=== PATIENT | female | born 1985 | race Caucasian/White ===

== ENCOUNTER 2017-05-31 09:44 | Emergency (ER) | payer OTHER ==
[~2017-05-31] VITALS: Ht 154.9 cm; Wt 71.7 kg
[~2017-05-31 09:44] MED LIST: CALCTAB98 PO; FERR325T PO; IBUP600 PO; OXYC1SOL5 PO; PREN0.01 PO
[2017-05-31] MEDS ORDERED: LACTATED RINGER'S 1000 ML INJ 1,000 ML IV SCH (10:03)
[2017-05-31 10:04] VITALS: BP 115/58; PULSE 94
[2017-05-31 10:05] VITALS: BP 109/69; PULSE 103
[2017-05-31 10:07] VITALS: BP 99/65; PULSE 118
--- NOTE | 2017-05-31 10:07 | PD ---
HPI Chief Complaint nausea/vomiting Date Seen: May 31, 2017 Travel History International Travel<30 Days: No Contact w/Intl Traveler<30Days: No History of Present Illness HPI Mrs. Jiang is a [address] Castano at 30 1/7 weeks who presents with nausea/vomiting and abdominal cramping. Mrs. Jiang reports that she has had nausea/vomiting for 4 days following oral intake of liquids or food; patient states that she last attempted to eat solid food on Tuesday. Patient has since tried to just drink fluids to maintain hydration but has continued to vomit. Patient does not report any abnormal consistency of vomit or suggestion of blood in vomit. Patient also states that this morning she began to have lower abdominal cramping which she describes as menstrual cramps. Patient reports that she had some loose stools earlier this week but no bowel movement abnormalities for the past 2 days. Patient does not report any associated fever/chills. Patient does not report previous episodes of frequent vomiting during with exception of morning sickness early in . Patient reports normal movement. Patient does not report any vaginal bleeding or vaginal discharge. Patient is had some headaches; no associated dizziness. No shortness of breath or leg swelling. Patient reports some leg cramping. Patient reports having unremarkable history is less for . Patient had a prior section at term for failure to progress several years previously. 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- received Progesterone early in Past Surgical History Narrative Surgical CS x1 D&C Family History Narrative Family History None reported Social History Alcohol Use: No Tobacco Use: No Substance Abuse: No Allergies-Medications (Allergen,Severity, Reaction): Coded Allergies: No Known Allergies (Unverified , 02/13/15) Home Meds Active Scripts Ibuprofen (Motrin 600 Mg Tab) 600 Mg Tab, 600 MG PO Q6H Y for CRAMPING, #30 TAB 0 Refills Prov:Rosario Dyson MD 02/16/15 Oxycodone W/ Acetaminophen (Oxycodone/Acetaminophen 5-325 mg/5Ml) 1 Tab Tab, 2 TAB PO Q4H Y for PAIN SCALE 6 TO 10, #30 TAB 0 Refills Prov:Rosario Dyson MD 02/16/15 Reported Medications Ferrous Sulfate (Iron) 325 Mg Tab, PO DAILY, TAB 02/13/15 Calcium Carbonate-Vitamin D (Calcium) Tab, 1 TAB PO DAILY, TAB 02/13/15 Multivit/Min/Fol Ac/Iron/Pren ( Vit ( Plus)) Tab, 1 TAB PO DAILY, TAB 02/13/15 Review of Systems General / Constitutional: No: Fever, Chills Eyes: No: Blurred Vision HENT: No: Headaches Cardiovascular: No: Chest Pain or Discomfort Respiratory: No: Short of Breath Gastrointestinal: Nausea, Vomiting, Abdominal Pain (lower abdominal cramping), No: Diarrhea Genitourinary: No: Urgency, Frequency Skin: No Rash, No Itching Neurologic: No: Weakness, Dizziness Physical Exam SBP 115 HR 93 T 97.7F Narrative GENERAL: Well-nourished, well-developed patient. SKIN: Warm and dry. EYES: No scleral icterus. No injection or drainage. ENT: No nasal drainage noted. Mucous membranes pink. Airway patent. CARDIOVASCULAR: Regular rate and rhythm without murmurs. Normal peripheral perfusion RESPIRATORY: CTAB; normal rate EXTREMITIES: No cyanosis or edema. NEUROLOGICAL: Awake and alert. Motor and sensory function grossly within normal limits. ABDOMEN/GI: Abdomen soft, mild discomfort inferiorly, bowel sounds present, no rebound, no guarding Gravid GENITOURINARY: Uterine Contractions: None FHT's: Category: 1 Baseline: 135 Reactive: Y Variability: Mod Decels: None Data Data Orders Orders Vital Signs (Adult) .ON ADMISSION (05/31/17 10:03) ^ Labor Status (05/31/17 10:03) Urinalysis - C+S If Indicated (05/31/17 10:03) ^ Non Stress Test (05/31/17 10:03) ^ Hydration (05/31/17 10:03) Cbc No Diff, Includes Plts (05/31/17 10:03) Comprehensive Metabolic Panel (05/31/17 10:03) Lactated Ringer's 1000 Ml Inj (Lr 1000 M (05/31/17 10:03) MDM Medical Record Reviewed: Yes Narrative Course / MDM Mrs. Jiang is a [address] Castano at 30 1/7 weeks who presents with nausea/vomiting and abdominal cramping. -Inability to maintain PO intake for 4 days -Lower abdominal cramping -VS: suggestion of orthostasis -Uterine irritability on CTG -Cat 1 rhythm Plan: -Continue to monitor VS -Continue to monitor EFM, CTG -Will start IV LR -Will check CBC, CMP, UA Interval: -Patient received IV Ringer's, no nausea at this time -CBC- Hgb 11, WBC 11.9, PLT 193 -CMP- Cr 0.35, electrolytes wnl, LFT's wnl Updated Plan: -Discussed with patient that her initial lab work is reassuring of lack of severe dehydratuion and that she would be safe for discharge home and follow-up with Dr. Castano -Oral intake encouraged; will give patient prescription for Phenergan to assist with nausea control -Patient to return to OB ED with worsening nausea/vomiting or other symptoms Diagnosis Diagnosis: Primary Impression: 30 weeks gestation of Additional Impression: Nausea/vomiting in Disposition: 01 DISCHARGE HOME Condition: Stable Scripts Promethazine (Phenergan) 25 Mg Tablet 25 MG PO Q6H Y for NAUSEA OR VOMITING, #20 TAB 0 Refills Prov: Lamonte Oviedo MD, R3 05/31/17 Lamonte Oviedo MD, R3 May 31, 2017 10:07
[2017-05-31 10:09] VITALS: RESP 18; TEMP 97.7
[2017-05-31 11:07] LABS: HEMATOCRIT 32.2 % (35.0-46.0); MEAN CELL VOLUME 90.2 FL (80.0-100.0); MEAN CORPUSCULAR HEMOGLOBIN 30.7 PG (27.0-34.0); MEAN CORPUSCULAR HGB CONC 34.1 % (32.0-36.0); MEAN PLATELET VOLUME 7.7 FL (7.0-11.0); PLATELET COUNT 193 TH/MM3 (150-450); RED BLOOD COUNT 3.57 MIL/MM3 (4.00-5.30); RED CELL DISTRIBUTION WIDTH 13.1 % (11.6-17.2); WHITE BLOOD COUNT 11.9 TH/MM3 (4.0-11.0)
[2017-05-31 11:12] LABS: ALKALINE PHOSPHATASE 82 U/L (45-117); TOTAL BILIRUBIN ADULT 0.3 MG/DL (0.2-1.0); TOTAL PROTEIN 6.5 GM/DL (6.4-8.2)
[2017-05-31 11:16] LABS: ALBUMIN 2.7 GM/DL (3.4-5.0); ALT (GPT) 14 U/L (10-53); AST (GOT) 20 U/L (15-37); BICARBONATE 21.9 MEQ/L (21.0-32.0); BLOOD UREA NITROGEN 8 MG/DL (7-18); CALCIUM 8.5 MG/DL (8.5-10.1); CHLORIDE 107 MEQ/L (98-107); CREATININE 0.35 MG/DL (0.50-1.00); GLOMERULAR FILTRATION RATE 217 ML/MIN (>89); GLUCOSE,RANDOM 80 MG/DL (74-106); SODIUM (NA) 139 MEQ/L (136-145)
[2017-05-31] MEDS ORDERED: PROM25TA10 PO (12:16)
[2017-05-31 12:28] LABS: BACTERIA, URINE FEW /hpf; BILIRUBIN, URINE NEG (NEG); BLOOD, URINE NEG (NEG); GLUCOSE,URINE NEG (NEG); HYALINE CAST, URINE 1 /lpf (RARE); KETONE, URINE 10 mg/dL (NEG); MUCUS URINE FEW /lpf (OCC); NITRITE,URINE NEG (NEG); SQUAMOUS EPITHELIAL CELL URINE 11 /hpf (0-5); URINE COLOR YELLOW (YELLW/STRAW); URINE LEUKOCYTE ESTERASE NEG (NEG)
== END 2017-05-31 13:26 | disposition home or self-care (01) ==
LOC: HOBED 09:44
DX: O21.2 Late vomiting of pregnancy (principal); Z3A.30 30 weeks gestation of pregnancy
CPT/HCPCS: 80053; 81001; 85027; 99284; J7120

== ENCOUNTER 2017-07-24 21:01 | Emergency (ER) | payer OTHER ==
[~2017-07-24 21:01] MED LIST changes: -CALCTAB98 PO; -FERR325T PO; -IBUP600 PO; -OXYC1SOL5 PO; +PROM25TA10 PO
--- NOTE | 2017-07-24 21:52 | PD ---
HPI Chief Complaint Contractions Date Seen: Jul 24, 2017 Time Seen: 21:47 Travel History International Travel<30 Days: No Contact w/Intl Traveler<30Days: No Known Affected Area: No History of Present Illness HPI 32-year-old 3 para 1 at 37-6/7 weeks gestation who reports mild contractions over the past 2-3 days. She states that she will occasionally have a more intense contraction. She denies any leakage of fluid or bleeding. She reports that she was 2 cm dilated in the office on Tuesday. Her cervix is 2 cm, long, high presenting part. Category 1 heart rate. History Past Medical History Medical History: Denies Significant Hx Obstetric History Obstetric History 1 SAB with D&C Prior section after second stage arrest Past Surgical History Narrative Surgical and D&C Family History Family History: Negative Social History Alcohol Use: No Tobacco Use: No Substance Abuse: No Allergies-Medications (Allergen,Severity, Reaction): Coded Allergies: No Known Allergies (Unverified , 02/13/15) Home Meds Active Scripts Promethazine (Phenergan) 25 Mg Tablet, 25 MG PO Q6H Y for NAUSEA OR VOMITING, # 20 TAB 0 Refills Prov:Lamonte Oviedo MD, R3 05/31/17 Reported Medications Multivit/Min/Fol Ac/Iron/Pren ( Vit ( Plus)) 27 Mg Iron-1 Mg Tab , 1 TAB PO DAILY, TAB 02/13/15 Review of Systems Except as stated in HPI: all other systems reviewed are Neg Physical Exam Narrative GENERAL: Well-nourished, well-developed patient. SKIN: Warm and dry. HEAD: Normocephalic and atraumatic. EYES: No scleral icterus. No injection or drainage. ENT: No nasal drainage noted. Mucous membranes pink. Airway patent. NECK: Supple, trachea midline. No JVD. CARDIOVASCULAR: Regular rate and rhythm without murmurs, gallops, or rubs. RESPIRATORY: Breath sounds equal bilaterally. No accessory muscle use. Gravid to [-] weeks size Fundal Height: [-] GENITOURINARY: External Genitalia: intact and normal in appearance BUS glands: [Negative-] Cervix: [-] Dilatation: [-2] Effacement: [lg] Station: [-high] Presentation: [-vtx] Membranes: [intact ] Uterine Contractions: [-q5-7] FHT's: Category: [-1] Baseline: [-] Reactive: [-] Variability: [-] Decels: [-] EXTREMITIES: No cyanosis or edema. BACK: Nontender without obvious deformity. No CVA tenderness. NEUROLOGICAL: Awake and alert. Motor and sensory grossly within normal limits. Five out of 5 muscle strength in all muscle groups. Normal speech. MDM Medical Record Reviewed: Yes Narrative Course / MDM Assessment: 37+ weeks gestation with mild irregular uterine contractions and no cervical change since Wednesdays exam Plan: Home with labor precautions. Diagnosis Diagnosis: Primary Impression: 37 weeks gestation of Additional Impression: False labor after 37 weeks of gestation without delivery Disposition: 01 DISCHARGE HOME Condition: Good Nas Goodman MD Jul 24, 2017 21:52
== END 2017-07-24 22:07 | disposition home or self-care (01) ==
LOC: HOBED 21:01
DX: O47.1 False labor at or after 37 completed weeks of gestation (principal); Z3A.37 37 weeks gestation of pregnancy
CPT/HCPCS: 59025

== ENCOUNTER 2017-07-29 08:45 | Inpatient (IN) | payer OTHER ==
[2017-07-29] VITALS (12 sets, daily range): BP systolic 93–103; BP diastolic 48–60; PULSE 66–92; RESP 16–20; TEMP 97.5–98.2; O2SAT 99–100
[~2017-07-29] VITALS: Ht 154.9 cm; Wt 76.0 kg
[2017-07-29] MEDS ORDERED: LACTATED RINGER'S 1000 ML INJ 1,000 ML IV ONE (09:34)
[2017-07-29 09:43] LABS: AUTOMATED NEUTROPHIL # 10.8 TH/MM3 (1.8-7.7); BASOPHIL # 0.1 TH/MM3 (0-0.2); BASOPHIL % 0.4 % (0.0-2.0); EOSINOPHIL # 0.1 TH/MM3 (0-0.4); EOSINOPHIL % 0.9 % (0.0-4.0); HEMATOCRIT 34.8 % (35.0-46.0); HEMOGLOBIN 12.2 GM/DL (11.6-15.3); LYMPH % 16.6 % (9.0-44.0); LYMPHOCYTE # 2.3 TH/MM3 (1.0-4.8); MEAN CELL VOLUME 87.2 FL (80.0-100.0); MEAN CORPUSCULAR HEMOGLOBIN 30.7 PG (27.0-34.0); MEAN CORPUSCULAR HGB CONC 35.2 % (32.0-36.0); MEAN PLATELET VOLUME 7.9 FL (7.0-11.0); MONO % 5.8 % (0.0-8.0); MONOCYTE # 0.8 TH/MM3 (0-0.9); NEUT % 76.3 % (16.0-70.0); PLATELET COUNT 257 TH/MM3 (150-450); RED BLOOD COUNT 3.99 MIL/MM3 (4.00-5.30); RED CELL DISTRIBUTION WIDTH 13.8 % (11.6-17.2); WHITE BLOOD COUNT 14.1 TH/MM3 (4.0-11.0)
--- NOTE | 2017-07-29 09:44 | HHI.HP ---
HPI Chief Complaint Regular contractions with cervical change prior section after prolonged second stage desires repeat section Date Seen: Jul 29, 2017 Time Seen: 09:36 Travel History International Travel<30 Days: No Contact w/Intl Traveler<30Days: No Known Affected Area: No History of Present Illness HPI 32 yo mwf at 38 5/7 weeks scheduled for section Tuesday. She has been akiko irregularly for one week and had one visit to [facility]. This am they have picked up in frequency and intensity. No leaking, bleeding. No CROWELL, nausea , vomiting or blurred vision. PNC with [facility] and uneventful. No GTN, PTL or GDM. GFM Weeks Gestation: 39 Para: 1 : 2 History Past Medical History Medical History: Denies Significant Hx Obstetric History Obstetric History Traumatic delivery: taken back for section after pushing several hours with good tracing in room. At delivery apgars 0, 0 5 at 1,5,10 minutes with no etiology identifed. Toddler is in excellent health. Keisha and Mars have significant PTSD Family History Family History: Negative Social History Alcohol Use: No Tobacco Use: No Substance Abuse: No Allergies-Medications (Allergen,Severity, Reaction): Coded Allergies: No Known Allergies (Unverified , 02/13/15) Home Meds Reported Medications Multivit/Min/Fol Ac/Iron/Pren ( Vit ( Plus)) 27 Mg Iron-1 Mg Tab , 1 TAB PO DAILY, TAB 02/13/15 Discontinued Scripts Promethazine (Phenergan) 25 Mg Tablet, 25 MG PO Q6H Y for NAUSEA OR VOMITING, # 20 TAB 0 Refills Prov:Lamonte Oviedo MD, R3 05/31/17 Review of Systems General / Constitutional: No: Fever, Weight Gain, Chills, Other Eyes: No: Diploplia, Blurred Vision, Visual changes, Pain, Photophobia HENT: No: Headaches, Vertigo, Lightheadedness Cardiovascular: No: Irregular Rhythm, Chest Pain or Discomfort, Palpitations, Tachycardia, Syncope, Varicosities, Edema, Cyanosis Respiratory: No: Cough, Short of Breath, Other Gastrointestinal: No: Nausea, Vomiting, Diarrhea Genitourinary: No: Decreased Urinary Output, Oliguria Musculoskeletal: No: Limited ROM, Weakness, Cramping, Edema, Pain Skin: No Rash, No Itching, No Dryness, No Lumps, No Change in Pigmentation, No Change in Nails, No Alopecia, No Lesions Neurologic: No: Weakness, Dizziness, Syncope, Focal Abnormalities, Coordination Problem, Headache, Slurred Speech, Seizures Psychiatric: No: Depression, Suicidal Ideations, Homicidal Ideation Endocrine: No: Heat Intolerance, Cold Intolerance, Polydipsia, Polyuria, Other Physical Exam Narrative GENERAL: Well-nourished, well-developed patient. SKIN: Warm and dry. HEAD: Normocephalic and atraumatic. EYES: No scleral icterus. No injection or drainage. ENT: No nasal drainage noted. Mucous membranes pink. Airway patent. NECK: Supple, trachea midline. No JVD. CARDIOVASCULAR: Regular rate and rhythm without murmurs, gallops, or rubs. RESPIRATORY: Breath sounds equal bilaterally. No accessory muscle use. BREASTS: Bilateral exam showed no masses , no retractions, no nipple discharge. ABDOMEN/GI: Abdomen soft, non-tender, bowel sounds present, no rebound, no guarding FH 39 cervix 50/2/-1 anterior soft EFW 7 strip category one EXTREMITIES: No cyanosis or edema. BACK: Nontender without obvious deformity. No CVA tenderness. NEUROLOGICAL: Awake and alert. Motor and sensory grossly within normal limits. Five out of 5 muscle strength in all muscle groups. Normal speech. Caprini VTE Risk Assessment Caprini VTE Risk Assessment: No/Low Risk (score <= 1) Caprini Risk Assessment Model Point Value = 1 Point Value = 2 Point Value = 3 Point Value = 5 Age 41-60 Minor surgery BMI > 25 kg/m2 Swollen legs Varicose veins or History of unexplained or recurrent spontaneous Oral contraceptives or hormone replacement Sepsis (< 1 month) Serious lung disease, including pneumonia (< 1 month) Abnormal pulmonary function Acute myocardial infarction Congestive heart failure (< 1 month) History of inflammatory bowel disease Medical patient at bed rest Age 61-74 Arthroscopic surgery Major open surgery (> 45 min) Laparoscopic surgery (> 45 min) Malignancy Confined to bed (> 72 hours) Immobilizing plaster cast Central venous access Age >= 75 History of VTE Family history of VTE Factor V Leiden Prothrombin [id number] Lupus anticoagulant Anticardiolipin antibodies Elevated serum homocysteine Heparin-induced thrombocytopenia Other congenital or acquired thrombophilia Stroke (< 1 month) Elective arthroplasty Hip, pelvis, or leg fracture Acute spinal cord injury (< 1 month) Prophylaxis Regimen Total Risk Factor Score Risk Level Prophylaxis Regimen 0-1 Low Early ambulation 2 Moderate Order ONE of the following: *Sequential Compression Device (SCD) *Heparin 5000 units SQ BID 3-4 Higher Order ONE of the following medications: *Heparin 5000 units SQ TID *Enoxaparin/Lovenox 40 mg SQ daily (WT < 150 kg, CrCl > 30 mL/min) *Enoxaparin/Lovenox 30 mg SQ daily (WT < 150 kg, CrCl > 10-29 mL/min) *Enoxaparin/Lovenox 30 mg SQ BID (WT < 150 kg, CrCl > 30 mL/min) AND/OR *Sequential Compression Device (SCD) 5 or more Highest Order ONE of the following medications: *Heparin 5000 units SQ TID (Preferred with Epidurals) *Enoxaparin/Lovenox 40 mg SQ daily (WT < 150 kg, CrCl > 30 mL/min) *Enoxaparin/Lovenox 30 mg SQ daily (WT < 150 kg, CrCl > 10-29 mL/min) *Enoxaparin/Lovenox 30 mg SQ BID (WT < 150 kg, CrCl > 30 mL/min) AND *Sequential Compression Device (SCD) Data Data Vital Signs Reviewed: Yes Orders Orders Ob (2e) Additional Admit Info (07/29/17 09:13) Admit To Inpatient (07/29/17 ) Code Status (07/29/17 09:34) Vital Signs (Adult) .ON ADMISSION (07/29/17 09:34) Activity Oob Ad Swetha (07/29/17 09:34) Heart (07/29/17 09:34) Urinary Catheter Management SAMEER.Q8H (07/29/17 09:34) ^ Preps (07/29/17 09:34) Scd / Juan / Foot Pump SAMEER.QSHIFT (07/29/17 09:34) ^ Ultrasound For Locatio (07/29/17 09:34) Diet Npo (07/29/17 Breakfast) Lactated Ringer's 1000 Ml Inj (Lr 1000 M (07/29/17 09:34) Lactated Ringer's 1000 Ml Inj (Lr 1000 M (07/29/17 10:04) Cefazolin 2 Gm Premix (Ancef 2 Gm Premix (07/29/17 10:45) Citric Acid-Sodium Citrate Liq (Bicitra (07/29/17 11:15) Type And Screen (07/29/17 09:34) Complete Blood Count With Diff (07/29/17 09:34) Urinalysis - C+S If Indicated (07/29/17 09:34) Drug Screen, Random Urine (07/29/17 09:34) Inpatient Certification (07/29/17 ) Specimen To Be Collected PRN (07/29/17 09:34) Specimen To Be Collected PRN (07/29/17 09:34) Group B Strep: Negative Assessment/Plan Problem List: (1) Third trimester ICD Codes: Z34.93 - Encounter for supervision of normal , unspecified , third trimester (2) Previous delivery, antepartum ICD Codes: O34.219 - Maternal care for unspecified type scar from previous delivery Assessment and Plan Will proceed with section that was scheduled for Tuesday. Risks, benefits, alternative, expectations have been reviewed in the office and here. Ally very fearful of TOLAC given the traumatic delivery of her daughter. Alycia Castano MD Jul 29, 2017 09:44
[2017-07-29 09:51] LABS: BACTERIA, URINE RARE /hpf; BILIRUBIN, URINE NEG (NEG); BLOOD, URINE NEG (NEG); GLUCOSE,URINE NEG (NEG); KETONE, URINE NEG (NEG); MUCUS URINE FEW /lpf (OCC); NITRITE,URINE NEG (NEG); SQUAMOUS EPITHELIAL CELL URINE 4 /hpf (0-5); URINE COLOR YELLOW (YELLW/STRAW); URINE LEUKOCYTE ESTERASE NEG (NEG)
[2017-07-29] MEDS ORDERED: MORPHINE SULFATE PF 5 MG/10 ML VIAL ONE (09:51)
[2017-07-29] MEDS: LACTATED RINGER'S 1000 ML INJ 1,000 ML IV SCH (10:16)
[2017-07-29] MEDS ORDERED: EPIDURAL-NO SYSTEMIC NARCOTICS PRN (10:25)
[2017-07-29] MEDS ORDERED: EPIDURAL-DIPHENHYDRAMINE HCL 50 MG/ML VIAL IV PUSH PRN (10:25)
[2017-07-29] MEDS ORDERED: EPIDURAL-NALOXONE HCL 0.4 MG/ML AMP IV PUSH PRN (10:25)
[2017-07-29] MEDS ORDERED: EPIDURAL-DIPHENHYDRAMINE HCL 50 MG CAP PO PRN (10:25)
[2017-07-29] MEDS ORDERED: EPIDURAL-DO NOT ADMINISTER ANTICOAGULANTS PRN (10:25)
[2017-07-29] MEDS ORDERED: ceFAZolin 2 GM PREMIX 50 ML IV SCH (10:45)
[2017-07-29] MEDS ORDERED: CITRIC ACID-SODIUM CITRATE LIQ 30 ML UDC PO SCH (11:15)
--- NOTE | 2017-07-29 11:27 | PD.OB.DELI ---
Procedure Note Section Procedure Pre Op Diagnosis: (1) Third trimester (2) Previous delivery affecting Post Op Diagnosis: (1) delivery delivered Performed by Alycia Castano Procedure: Repeat Low Transverse Sec Indication for delivery: Desired elective repeat Informed consent obtained: For anesthesia, For procedure Confirmed correct: Patient, Procedure, Site, Time-out taken Anesthesia: Spinal Medication prior to procedure: As documented in eMAR Monitoring during procedure: Blood pressure monitoring, bus monitor, doppler, Pulse oximetry Urinary catheter: Inserted using sterile technique, To dependent drainage Sterile preparation: Duraprep, In usual fashion Position: Supine with wedge to right side Operative Features Skin Incision: Pfannenstiel Uterine Incision: Low transverse w/knife / blunt ext Membranes Ruptured: Artificially Presentation: Occiput anterior Delivery date: Jul 29, 2017 Delivery time: 11:26 Delivery of infant: Assisted Infant: Female One Minute : 8 Five Minute : 9 Weight: 8 pounds 7 ounces Status of infant: Viable, Cord blood, Umbilical cord, Nursery present Placenta delivered: Intact Medications: Antibiotics, Oxytocin Estimated blood loss: 600 Procedure tolerated: Well Maternal Condition: Stable Condition: Stable Procedure in detail dictated Alycia Castano MD Jul 29, 2017 11:27
[2017-07-29] MEDS ORDERED: DEXAMETHASONE SOD PHOS 4 MG/ML VIAL IV ONE (12:00)
[2017-07-29] MEDS ORDERED: PHENYLEPH/NS 1000 MCG/10 ML SYR IV ONE (12:00)
[2017-07-29] MEDS ORDERED: OXYTOCIN 30 UNITS-500ML PREMIX 500 ML IV ONE (12:00)
[2017-07-29] MEDS ORDERED: OXYTOCIN 10 UNIT/ML AMP IV ONE (12:00)
[2017-07-29] MEDS ORDERED: oxyCODONE/ACETAMINOPHEN 5 MG/325 MG TAB PO PRN (12:00)
[2017-07-29] MEDS ORDERED: ACETAMINOPHEN 1000 MG/100 ML 100 ML IV ONE ×2 (12:00→12:10)
[2017-07-29] MEDS ORDERED: ePHEDrine/NS 25 MG/5 ML SYRINGE IV ONE (12:00)
[2017-07-29] MEDS ORDERED: ONDANSETRON HCL 4 MG/2 ML VIAL IV ONE (12:00)
[2017-07-29] MEDS ORDERED: SODIUM CHLORIDE 0.9% FLUSH 10 ML FLUSH IV FLUSH PRN (12:00)
[2017-07-29] MEDS ORDERED: IBUP-232 PO (15:39)
[2017-07-29] MEDS ORDERED: PERC5TAB12 PO (15:40)
--- NOTE | 2017-07-29 15:41 | HHI.DCPOC ---
Discharge Care Plan Diagnosis: (1) Third trimester (2) delivery delivered (3) Previous delivery affecting Your Health Problems Are: delivery Report Symptoms to Your Doctor -Temperature above 100.5 degrees -Redness, of incision or excessive or foul smelling drainage -Unusual pain or calf pain -Increased vaginal bleeding -Painful or difficulty urinating -Feelings of extreme sadness or anxiety after 2 weeks Goals to Promote Your Health * To prevent worsening of your condition and complications * To maintain your health at the optimal level Directions to Meet Your Goals Take your medications as prescribed Follow your dietary instruction Follow activity as directed Ensure plenty of rest for recovery Drink fluids for hydration Keep your appointments as scheduled Take your immunizations and boosters as scheduled If your symptoms worsen call your PCP, if no PCP go to Urgent Care Center or Emergency Room Smoking is Dangerous to Your Health. Avoid second hand smoke Call the 24-hour crisis hotline for domestic abuse at Bang Alejandro MD Jul 29, 2017 15:41
[2017-07-29] MEDS ORDERED: LACTATED RINGER'S 1000 ML INJ 1,000 ML IV SCH (16:27)
[2017-07-29] MEDS ORDERED: ONDANSETRON HCL 4 MG/2 ML VIAL IV PUSH PRN (16:45)
[2017-07-29] MEDS ORDERED: SODIUM CHLORIDE 0.9% FLUSH 10 ML FLUSH IV FLUSH SCH (21:00)
[2017-07-29] MEDS ORDERED: OXYTOCIN 30 UNITS-500ML PREMIX 500 ML IV PRN (21:30)
[2017-07-29] MEDS: IBUPROFEN 600 MG TAB PO PRN (22:07)
[2017-07-29] MEDS: oxyCODONE/ACETAMINOPHEN 5 MG/325 MG TAB PO PRN (22:07)
[2017-07-30] VITALS: BP 96/60; PULSE 110; RESP 18; TEMP 98.3
[2017-07-30 04:00] VITALS: BP 99/65; PULSE 93; RESP 18; TEMP 98.1
[2017-07-30] MEDS: IBUPROFEN 600 MG TAB PO PRN ×4 (04:02→22:34)
[2017-07-30] MEDS: oxyCODONE/ACETAMINOPHEN 5 MG/325 MG TAB PO PRN ×4 (04:03→18:36)
--- NOTE | 2017-07-30 07:48 | HHI.OB ---
Subjective Post Operative Day: 1 Remarks Doing well, pain controlled, vaginal bleeding less than menses, tolerating diet , no nausea or vomiting. Objective Result Diagram: 07/29/17 0920 Objective Remarks GENERAL: Well-nourished, well-developed patient. CARDIOVASCULAR: Regular rate RESPIRATORY: No accessory muscle use. EXTREMITIES: No cyanosis or edema, non-tender, without signs of DVT. Medications and IVs Current Medications Medications (Trade) Dose Ordered Sig/David Route Start Time Stop Time Status Last Admin Lactated Ringer's 1,000 ml @ 150 mls/hr Q6H40M IV 07/29/17 10:00 07/29/17 10:16 Cefazolin Sodium/ Dextrose 50 ml @ 100 mls/hr RUBBER TRIMMER IV 07/29/17 10:45 08/02/17 10:44 07/29/17 10:15 (Bicitra Liq) 30 ml RUBBER TRIMMER PO 07/29/17 11:15 08/02/17 11:14 07/29/17 10:15 Lactated Ringer's 1,000 ml @ 100 mls/hr Q10H IV 07/29/17 16:27 07/30/17 12:26 Oxytocin 500 ml @ 100 mls/hr UNSCH X1 PRN IV 07/29/17 21:30 07/30/17 21:29 (NS Flush) 2 ml BID IV FLUSH 07/29/17 21:00 (NS Flush) 2 ml UNSCH PRN IV FLUSH 07/29/17 12:00 (Motrin) 600 mg Q6H PRN PO 07/29/17 12:00 07/30/17 04:02 (Percocet 5-325 Mg) 1 tab Q4H PRN PO 07/29/17 12:00 07/30/17 04:03 (Percocet 5-325 Mg) 2 tab Q4H PRN PO 07/29/17 12:00 (M-M-R Ii Inj) 0.5 ml ONCE ONCE SQ 07/30/17 16:00 07/30/17 16:01 (Boostrix Inj) 0.5 ml ONCE ONCE IM 07/30/17 16:00 07/30/17 16:01 Miscellaneous Information NO SYSTEMIC NARCOTICS TO BE GIVEN FO... UNSCH PRN .XX 07/29/17 10:25 07/30/17 10:24 (Narcan Inj) 0.4 mg UNSCH PRN IV PUSH 07/29/17 10:25 07/30/17 10:24 (Benadryl Inj) 25 mg Q6H PRN IV PUSH 07/29/17 10:25 07/30/17 10:24 (Benadryl) 50 mg Q6H PRN PO 07/29/17 10:25 07/30/17 10:24 Miscellaneous Information ALL NURSING DEPARTMENTS UNSCH PRN .XX 07/29/17 10:25 07/30/17 10:24 (Zofran Inj) 4 mg Q6H PRN IV PUSH 07/29/17 16:45 07/29/17 16:45 Assessment/Plan Problem List: (1) Third trimester ICD Codes: Z34.93 - Encounter for supervision of normal , unspecified , third trimester (2) Previous delivery, antepartum ICD Codes: O34.219 - Maternal care for unspecified type scar from previous delivery Assessment and Plan 32-year-old 0-2 status post term repeat LTCS 1. POD #1: Doing well, afebrile, vital signs stable, output appropriate, and hemoglobin pending. Anticipate discharge home in the next 48 hours. Will Discuss postoperative expectations, follow-up and precaution tomorrow. Bang Alejandro MD Jul 30, 2017 07:48
[2017-07-30 08:00] VITALS: BP 95/57; PULSE 68; RESP 16; TEMP 98.3
[2017-07-30 08:31] LABS: AUTOMATED NEUTROPHIL # 10.2 TH/MM3 (1.8-7.7); BASOPHIL % 0.1 % (0.0-2.0); EOSINOPHIL # 0.1 TH/MM3 (0-0.4); EOSINOPHIL % 0.7 % (0.0-4.0); HEMATOCRIT 27.2 % (35.0-46.0); HEMOGLOBIN 9.3 GM/DL (11.6-15.3); LYMPH % 19.8 % (9.0-44.0); LYMPHOCYTE # 2.8 TH/MM3 (1.0-4.8); MEAN CELL VOLUME 87.7 FL (80.0-100.0); MEAN CORPUSCULAR HEMOGLOBIN 30.1 PG (27.0-34.0); MEAN CORPUSCULAR HGB CONC 34.3 % (32.0-36.0); MEAN PLATELET VOLUME 7.6 FL (7.0-11.0); MONO % 7.4 % (0.0-8.0); PLATELET COUNT 228 TH/MM3 (150-450); RED CELL DISTRIBUTION WIDTH 14.1 % (11.6-17.2); WHITE BLOOD COUNT 14.1 TH/MM3 (4.0-11.0)
[2017-07-30] MEDS: DOCUSATE SODIUM 50 MG/SENNA 8.6 MG TAB PO PRN (10:11)
[2017-07-30] MEDS ORDERED: DIPHTH/TETANUS/ACEL PERTUSSIS (BOOSTER) 0.5 ML VIAL/PFS IM ONE (16:00)
[2017-07-30] MEDS ORDERED: MEASLES, MUMPS, RUBELLA VACCINE 0.5 ML VIAL SQ ONE (16:00)
[2017-07-30 19:30] VITALS: BP 110/64; PULSE 80; RESP 18; TEMP 97.7
[2017-07-31] MEDS: LACTATED RINGER'S 1000 ML INJ 1,000 ML IV SCH ×2 (00:05→05:36)
[2017-07-31] MEDS: DOCUSATE SODIUM 50 MG/SENNA 8.6 MG TAB PO PRN (03:30)
[2017-07-31] MEDS: oxyCODONE/ACETAMINOPHEN 5 MG/325 MG TAB PO PRN ×3 (03:30→14:44)
[2017-07-31] MEDS: IBUPROFEN 600 MG TAB PO PRN ×2 (06:48→13:02)
[2017-07-31] MEDS ORDERED: medroxyPROGESTERone ACETATE SUSP 150 MG/ML SYRINGE ONE (09:15)
[2017-07-31 09:30] VITALS: BP 97/68; PULSE 86; RESP 16; TEMP 97.8
--- NOTE | 2017-07-31 10:33 | HHI.OB ---
Subjective Post Operative Day: 2 Remarks Doing well, pain controlled, vaginal bleeding less than menses, tolerating diet , no nausea or vomiting, some BL LE swelling, no pain and states is symmetrical Objective Vitals/I&O Vital Signs Date Time Temp Pulse Resp B/P (MAP) Pulse Ox O2 Delivery O2 Flow Rate FiO2 07/30/17 19:30 97.7 80 18 110/64 (79) Result Diagram: 07/30/17 0806 Objective Remarks GENERAL: Well-nourished, well-developed patient. CARDIOVASCULAR: Regular rate RESPIRATORY: No accessory muscle use. EXTREMITIES: No cyanosis or edema, non-tender, without signs of DVT. Medications and IVs Current Medications Medications (Trade) Dose Ordered Sig/David Route Start Time Stop Time Status Last Admin Lactated Ringer's 1,000 ml @ 150 mls/hr Q6H40M IV 07/29/17 10:00 07/29/17 10:16 Cefazolin Sodium/ Dextrose 50 ml @ 100 mls/hr FORGING ENGINEER IV 07/29/17 10:45 08/02/17 10:44 07/29/17 10:15 (Bicitra Liq) 30 ml FORGING ENGINEER PO 07/29/17 11:15 08/02/17 11:14 07/29/17 10:15 (NS Flush) 2 ml BID IV FLUSH 07/29/17 21:00 (NS Flush) 2 ml UNSCH PRN IV FLUSH 07/29/17 12:00 (Motrin) 600 mg Q6H PRN PO 07/29/17 12:00 07/31/17 06:48 (Percocet 5-325 Mg) 1 tab Q4H PRN PO 07/29/17 12:00 07/31/17 09:39 (Percocet 5-325 Mg) 2 tab Q4H PRN PO 07/29/17 12:00 07/30/17 22:35 (Zofran Inj) 4 mg Q6H PRN IV PUSH 07/29/17 16:45 07/29/17 16:45 (Yuliet-Colace) 2 tab BID PRN PO 07/30/17 08:00 07/31/17 03:30 Assessment/Plan Problem List: (1) Third trimester ICD Codes: Z34.93 - Encounter for supervision of normal , unspecified , third trimester (2) Previous delivery, antepartum ICD Codes: O34.219 - Maternal care for unspecified type scar from previous delivery Assessment and Plan 32-year-old status post term repeat LTCS 1. POD #2: Doing well, afebrile, vital signs stable, d/c home either later today or tomorrow. Bang Alejandro MD Jul 31, 2017 10:33
== END 2017-07-31 16:55 | disposition home or self-care (01) | DRG 766 ==
LOC: HOBED 08:45 → H2EB 09:18 → H1EA 12:43
PROVIDERS: ADMIT Obstetrics & Gynecology; ATTEND Obstetrics & Gynecology
PROC: 10D00Z1 Extraction of Products of Conception, Low, Open Approach (ICD-10-PCS; principal; 2017-07-29)
DX: O34.211 Maternal care for low transverse scar from previous cesarean delivery (principal); F43.10 Post-traumatic stress disorder, unspecified; O99.344 Other mental disorders complicating childbirth; Z3A.39 39 weeks gestation of pregnancy; Z37.0 Single live birth
CPT/HCPCS: 80307; 81001; 85025; 86850; 86900; 86901; 90715; 99283; J0131; J0690; J1100; J2274; J2370; J2405; J2590; J7120